=== PATIENT | female | born 1975 | race Caucasian/White ===

== ENCOUNTER 2021-01-14 10:58 | Outpatient (REF) | payer OTHER, SELFPAY ==
--- NOTE | ~2021-01-14 | MM_ITS ---
EXAMINATION: MM SCREENING DIGITAL BREAST TOMOSYNTHESIS, BILATERAL CLINICAL INFORMATION: Screening. Asymptomatic. The lifetime risk of breast cancer based on the Tyrer-Cuzick Model is 28.0%. Additional annual screening with breast MRI may be of benefit in women with a Score of 20% or greater. COMPARISON: Mammography: November 05, 2019 and studies dating back to December 30, 2009 TECHNIQUE: Digital breast tomosynthesis is performed in both the craniocaudal and mediolateral oblique views along with computer-aided detection (CAD). Synthesized 2D images are generated from the tomosynthesis. FINDINGS: There are scattered areas of fibroglandular density (ACR BI-RADS breast composition Category b). There are no significant masses, abnormal calcifications, or other abnormalities. MM/MM tomosynthesis screening BI IMPRESSION: There are no significant changes from prior study. ASSESSMENT: BI-RADS 1: Negative RECOMMENDATION: Routine annual mammography screening. Consideration of screening MRI. This patient's information was entered into a reminder system with a target due date for their next mammogram.
== END 2021-01-14 10:59 | disposition home or self-care (01) ==
LOC: HO.MAMMO 10:58
PROVIDERS: PCP Internal Medicine; Visit Provider Internal Medicine
DX: Z12.31 Encounter for screening mammogram for malignant neoplasm of breast (principal)
CPT/HCPCS: 77063; 77067

== ENCOUNTER 2023-02-03 11:42 | Outpatient (REF) | payer OTHER, SELFPAY ==
--- NOTE | ~2023-02-03 | MM_ITS ---
EXAMINATION: MM SCREENING DIGITAL BREAST TOMOSYNTHESIS, BILATERAL CLINICAL INFORMATION: Screening. Asymptomatic. The lifetime risk of breast cancer based on the Tyrer-Cuzick Model is 12%. COMPARISON: Mammography: 01/14/2021, 11/05/2019, 10/29/2018 TECHNIQUE: Digital breast tomosynthesis is performed in both the craniocaudal and mediolateral oblique views along with computer-aided detection (CAD). Synthesized 2D images are generated from the tomosynthesis. FINDINGS: There are scattered areas of fibroglandular density (ACR BI-RADS breast composition Category b). There are no significant masses, abnormal calcifications, or other abnormalities. Parenchymal pattern is similar to prior studies. There is no developing density or architectural abnormality. The axilla and skin contours are unremarkable. No significant changes. MM/MM tomosynthesis screening BI IMPRESSION: No mammographic evidence of malignancy. ASSESSMENT: BI-RADS 1: Negative RECOMMENDATION: Routine annual mammography screening. This patient's information was entered into a reminder system with a target due date for their next mammogram.
== END 2023-02-03 11:43 | disposition home or self-care (01) ==
LOC: HO.MAMMO 11:42
PROVIDERS: PCP Internal Medicine; Visit Provider Internal Medicine
DX: Z12.31 Encounter for screening mammogram for malignant neoplasm of breast (principal)
CPT/HCPCS: 77063; 77067

== ENCOUNTER 2023-02-23 11:08 | Outpatient (REF) | payer OTHER, SELFPAY ==
[2023-02-24 11:47] LABS: CT PCR NOT DETECTED (Not Detect.); NG PCR NOT DETECTED (Not Detect.)
[2023-02-24 13:45] LABS: BV Int Neg Control Negative (Negative); BV Int Pos Control Positive (Positive)
[2023-03-02 02:33] LABS: HPV mRNA E6/E7 rflx Not Detected (Not Detected)
== END 2023-02-23 11:09 | disposition home or self-care (01) ==
LOC: HO.LNP 11:08
PROVIDERS: PCP Internal Medicine; Visit Provider Advanced Practice Midwife
DX: Z01.419 Encounter for gynecological examination (general) (routine) without abnormal findings (principal); Z11.51 Encounter for screening for human papillomavirus (HPV); Z20.2 Contact with and (suspected) exposure to infections with a predominantly sexual mode of transmission
CPT/HCPCS: 0353U; 87480; 87510; 87624; 87660; 88142

== ENCOUNTER 2024-03-05 10:03 | Outpatient (REF) | payer OTHER, SELFPAY | END 2024-03-05 10:04 | disposition home or self-care (01) | LOC: HO.MAMMO 10:03 | PROVIDERS: Visit Provider Internal Medicine | DX: Z12.31 Encounter for screening mammogram for malignant neoplasm of breast (principal) | CPT/HCPCS: 77063; 77067 ==

== ENCOUNTER → 2024-03-05 10:30 | Outpatient (BNV) | payer OTHER, SELFPAY | PROVIDERS: Visit Provider Radiology Diagnostic Radiology | DX: Z12.31 Encounter for screening mammogram for malignant neoplasm of breast (principal) | CPT/HCPCS: 77063; 77067 ==

== ENCOUNTER 2024-11-20 13:03 | Outpatient (REF) | payer OTHER, SELFPAY ==
[2024-11-21 03:49] LABS: CT PCR NOT DETECTED (Not Detect.); NG PCR NOT DETECTED (Not Detect.)
[2024-11-21 13:03] LABS: Bacterial Vaginosis PCR POSITIVE (Negative); Candida Group PCR NOT DETECTED (Not Detect); Candida glab krusei PCR NOT DETECTED (Not Detect); Trichomonas vaginalis PCR NOT DETECTED (Not Detect)
== END 2024-11-20 13:04 | disposition home or self-care (01) ==
LOC: HO.LAB 13:03
PROVIDERS: Visit Provider Advanced Practice Midwife
DX: Z01.419 Encounter for gynecological examination (general) (routine) without abnormal findings (principal); N89.8 Other specified noninflammatory disorders of vagina; Z20.2 Contact with and (suspected) exposure to infections with a predominantly sexual mode of transmission; N95.1 Menopausal and female climacteric states; Z98.890 Other specified postprocedural states; Z78.9 Other specified health status
CPT/HCPCS: 36415; 81515; 83001; 86780; 86803; 87340; 87389; 87491; 87591; 99396; 99459

== ENCOUNTER 2024-11-20 13:03 | Outpatient (AMB) | payer OTHER, SELFPAY ==
--- NOTE | 2024-11-20 13:06 | A.OFFVIS_ITS ---
Vital Signs 11/20/24 13:11 Height 5 ft 6 in Weight 178 lb BMI 28.7 BP 114/74 Intake Visit Reasons: annual Family Law Specialist: Family Law Specialist Present (Susu) Accompanied by: Self / Same As Patient Allergies No Known Allergies Allergy (Verified 11/20/24 13:10) Medication List - Last Reconciled 11/20/24 by Tegan Tony CNM aspirin 1 tab PO DAILY cholecalciferol (vitamin D3) (Vitamin D3) 25 mcg PO DAILY diazepam 5 mg PO DAILY PRN fluticasone propionate 50 mcg/actuation sprays intranasal lamotrigine 150 mg PO DAILY omega 4-mvw-hcf-fish oil 1,000 (120-180) mg 1 cap PO BID omeprazole 20 mg PO DAILY rosuvastatin 20 mg PO BEDTIME zolpidem 5 mg PO BEDTIME PRN Is last menstrual period known: No Post menopausal: Yes Patient : No HPI HPI annual: Details: Patient is here for her vp cardiovascular annual exam. She has a number of issues going on she hurt her shoulder in a physical connection with someone and from that her neck is really hurting her as well she is going to be starting physical therapy next week and also she is going to be getting an injection her shoulder because she already had an MRI.. She says it has been uncomfortable when she has been having sex. She thinks it could be related to dryness (that was not demonstrated today). She sent the doctor a neurologist who she saw offer the neck and shoulder told her everything was related to menopause and she should talk to gynecology about hormones. She has a history endometrial ablation many years ago she does not remember who or when did it She is also complaining of a care original urinary incontinence and then when she goes to [facility] she can not fully empty only a little bit comes out. [facility] Surgical History No pertinent past surgical history Family History Mother Breast cancer Brain cancer Sister Pancreatic cancer Father Skin cancer Colon cancer Social History (Updated 02/23/23 @ 11:13 by Maryjo Chang CMA) Household Members: Significant Other Housing: Apartment Alcohol intake: current Alcohol intake frequency: a few times a week Alcohol type: beer Patient Tobacco Use Status: Never used Tobacco Female Reproductive History Menstrual Age of Menarche: 11 Total pregnancies: 2 Full term: 2 Date of last pap smear: 02/23/23 (negative hpv, negative pap smear ) Physical Exam Vital Signs: Last Vital Signs BP 114/74 11/20/24 13:11 BMI result Body Mass Index 28.7 Const Other: Patient works out several times a week at the gym and has very well developed musculature though she is concerned that she is losing some muscle mass. General: healthy appearing, comfortable, no acute distress, well developed and alert Nutritional Appearance: average body habitus Orientation/consciousness: patient oriented x3 Limitations: no limitations HEENT Head: Yes normocephalic Neck Neck: Yes normal visual inspection Chest Chest palpation & inspection: normal inspection of the chest Breast/axilla inspection: normal inspection of the breasts and normal inspection of the axillae Breast/axilla palpation: normal palpation of the breasts and normal palpation of the axillae Resp Effort & Inspection: normal respiratory effort GI Inspection: Yes normal to inspection, No Abdominal wall edema and No distended Palpation (GI): Soft to palpation and nontender Other: Normal external exam vagina is pink moist cervix appears nulliparous pink smooth shiny with scant it will pink trickle from os very moist mucosa which is not atrophic in the least. Cervix long close thick mobile nontender uterus mobile nontender nonenlarged adnexa nontender was not able to elicit any discomfort during the exam whatsoever patient had extremely good tone with Kegel. General: Yes bladder normal to palpation External Female Exam: normal external appearance and normal appearance of the urethra Speculum Exam - Vagina: normal appearance of the vagina, normal palpation and normal vaginal discharge Speculum Exam - Cervix: normal appearance of the cervix, normal palpation and nontender Bimanual exam- vagina & uterus: normal bimanual exam, normal palpation, uterine size normal, bladder normal to palpation, consistency normal, normal palpation, uterine mobility normal, uterine shape normal, No Cervical tenderness present, non-tender and no cervical motion tenderness Bimanual Exam- Adnexa, other: normal adnexae, no masses, normal and No adnexal tenderness Neuro General: patient oriented x3 Assessment & Plan Assessment & Plan (1) Well woman exam with routine gynecological exam: Code(s): Z01.419 - Encounter for gynecological examination (general) (routine) without abnormal findings Category: Medical (2) Cervical cancer screening: Comment: 02/03.10/2022 Pap is negative with negative HPV Code(s): Z12.4 - Encounter for screening for malignant neoplasm of cervix Category: Medical (3) Screen for sexually transmitted diseases: Code(s): Z11.3 - Encounter for screening for infections with a predominantly sexual mode of transmission Category: Medical (4) History of endometrial ablation: Code(s): Z98.890 - Other specified postprocedural states Category: Medical (5) Relies on tubal ligation as primary control method: Code(s): Z78.9 - Other specified health status Category: Medical (6) Perimenopausal symptoms: Comment: Discussed that I currently do not prescribe hormonal replacement therapy and she would need to seek advice from another provider if she chose to pursue this. Did discuss prema menopausal symptoms which she does not have very many of the th is point. Offered to do FSH to see if she is fact in menopause. She had an endometrial ablation so that is suppresses menses Code(s): N95.1 - Menopausal and female climacteric states Category: Medical (7) Urinary retention with incomplete bladder emptying: Comment: Discussed the mechanism holding urine for very long time until the bladders over full and then the incomplete emptying. Recommend discussing with primary care provider but also trying to make sure she voids at least every couple of hours. Code(s): R33.9 - Retention of urine, unspecified Category: Medical (8) Musculoskeletal disorder of neck: Comment: She is using hot and cold therapy and Epsom salt that is discussed heat wrap for neck as well. She will be getting a cortisone shot in her shoulder and we will be starting PT next week.... Code(s): M53.82 - Other specified dorsopathies, cervical region Category: Medical Plan -----Discussed in this visit the following: healthy balanced diet, regular and consistent exercise, getting recommended health screens, doing the best she can for her particular health concerns, kegel exercises, pap smear screening and followup recommendations, mammography screening and SBE, normal changes in cycles in her life stage--- . Discussed her past medical history in the fact that she had an ablation which would obviously prevent her periods she is not really having by her own description any of the other menopausal symptoms she is not actually experiencing any dryness today that was simply something I suggested and then she said well maybe but that she is not experiencing that actually, though she may occasionally during sex she said the lubricants do not work all that well. I was not able to duplicate any of the discomfort that she said she had had in the past discussed the possibility it could have been related to a full bladder. Discussed habits of holding urine and not emptying especially if there was not a clean bathroom around and then when she approaches a bathroom being unable to hold it completely and then only emptying a little bit discussed the mechanism an over full bladder and how incomplete emptying occurs I recommend considering having a discussion with her primary as to whether not she needs a referral to Urology.. Also discussed that I do not prescribe hormonal replacement therapy as I am not comfortable with it I did offer to do an FSH to see if she is in the menopausal range though she is not showing full symptoms of it at this point I also ordered a mammogram even though she said she all she needed to do was called just to be sure that she gets her yearly mammogram Discussed comfort measures for her neck and shoulder- she is also doing hot and cold therapy for the shoulder. Timeframe/Date Comment Labs and info on patient portal given RTC 1 year Orders: Orders Hepatitis C Antibody Today N95.1 - Menopausal and female climacteric states, Z01.419 - Encounter for gynecological examination (general) (routine) without abnormal findings, Z11.3 - Encounter for screening for infections with a predominantly sexual mode of transmission, Z12.4 - Encounter for screening for malignant neoplasm of cervix, Z78.9 - Other specified health status, Z98.890 - Other specified postprocedural states HIV Ab/Ag Today N95.1 - Menopausal and female climacteric states, Z01.419 - Encounter for gynecological examination (general) (routine) without abnormal findings, Z11.3 - Encounter for screening for infections with a predominantly sexual mode of transmission, Z12.4 - Encounter for screening for malignant neoplasm of cervix, Z78.9 - Other specified health status, Z98.890 - Other specified postprocedural states MM tomosynthesis screening BI Today N95.1 - Menopausal and female climacteric states, Z11.3 - Encounter for screening for infections with a predominantly sexual mode of transmission, Z12.31 - Encounter for screening mammogram for malignant neoplasm of breast, Z12.39 - Encounter for other screening for malignant neoplasm of breast, Z12.4 - Encounter for screening for malignant neoplasm of cervix, Z78.9 - Other specified health status, Z98.890 - Other specified postprocedural states Follicle Stimulating Hormone Today N95.1 - Menopausal and female climacteric states, Z01.419 - Encounter for gynecological examination (general) (routine) without abnormal findings, Z11.3 - Encounter for screening for infections with a predominantly sexual mode of transmission, Z12.4 - Encounter for screening for malignant neoplasm of cervix, Z78.9 - Other specified health status, Z98.890 - Other specified postprocedural states Hepatitis B Surface Antigen Today N95.1 - Menopausal and female climacteric states, Z01.419 - Encounter for gynecological examination (general) (routine) without abnormal findings, Z11.3 - Encounter for screening for infections with a predominantly sexual mode of transmission, Z12.4 - Encounter for screening for malignant neoplasm of cervix, Z78.9 - Other specified health status, Z98.890 - Other specified postprocedural states Syphilis Screen Today N95.1 - Menopausal and female climacteric states, Z01.419 - Encounter for gynecological examination (general) (routine) without abnormal findings, Z11.3 - Encounter for screening for infections with a predominantly sexual mode of transmission, Z12.4 - Encounter for screening for malignant neoplasm of cervix, Z78.9 - Other specified health status, Z98.890 - Other specified postprocedural states CT NG by PCR Today N89.8 - Other specified noninflammatory disorders of vagina, Z20.2 - Contact with and (suspected) exposure to infections with a predominantly sexual mode of transmission Bacterial Vaginosis Panel Today N89.8 - Other specified noninflammatory disorders of vagina Coding Level of Care Code Est Pt Prev Care 40-64y(45765) Diagnoses Well woman exam with routine gynecological exam Z01.419 Cervical cancer screening Z12.4 Screen for sexually transmitted diseases Z11.3 History of endometrial ablation Z98.890 Relies on tubal ligation as primary control method Z78.9 Perimenopausal symptoms N95.1 Urinary retention with incomplete bladder emptying R33.9 Musculoskeletal disorder of neck M53.82
[2024-11-20 13:11] VITALS: BP 114/74; BMI 28.7
== END 2024-11-20 15:54 | disposition home or self-care (01) ==
LOC: HO.HWSM 13:04
PROVIDERS: Visit Provider Advanced Practice Midwife
DX: Z01.419 Encounter for gynecological examination (general) (routine) without abnormal findings (principal); N95.1 Menopausal and female climacteric states; R33.9 Retention of urine, unspecified
CPT/HCPCS: 99396; 99459

== ENCOUNTER 2024-11-20 14:12 | Outpatient (REF) | payer OTHER, SELFPAY ==
[2024-11-21 04:09] LABS: Follicle Stimulating Hormone 9.4 mIU/mL
[2024-11-21 08:05] LABS: Syphilis Screen Nonreactive (Nonreactive)
[2024-11-21 08:09] LABS: HBsAGNum1 0.24 S/CO (0.00-0.99); HIV AB/AG Nonreactive (Nonreactive); HIV Num 1 0.05 S/CO (0.00-0.99); Hepatitis B Surface Antigen Negative (Negative); ~HepC Num1 0.09 S/CO (0.00-0.79); ~Hepatitis C Antibody Nonreactive (Nonreactive)
== END 2024-11-20 14:13 | disposition home or self-care (01) ==
LOC: HO.HHCL 14:12
PROVIDERS: Visit Provider Advanced Practice Midwife
DX: Z13.89 Encounter for screening for other disorder (principal)
CPT/HCPCS: 36415; 83001; 86780; 86803; 87340; 87389

== ENCOUNTER 2024-11-21 15:03 | Outpatient (AMB) | payer OTHER, SELFPAY ==
--- NOTE | 2024-11-21 15:05 | MHC.OFFVIS ---
Intake Visit Reasons: Test Result Allergies No Known Allergies Allergy (Verified 11/21/24 15:05) Medication List - Last Reconciled 11/21/24 by Tegan Tony CNM aspirin 1 tab PO DAILY cholecalciferol (vitamin D3) (Vitamin D3) 25 mcg PO DAILY diazepam 5 mg PO DAILY PRN fluticasone propionate 50 mcg/actuation sprays intranasal lamotrigine 150 mg PO DAILY omega 6-ekc-upt-fish oil 1,000 (120-180) mg 1 cap PO BID omeprazole 20 mg PO DAILY rosuvastatin 20 mg PO BEDTIME zolpidem 5 mg PO BEDTIME PRN Is last menstrual period known: No Post menopausal: Yes PFSH Surgical History No pertinent past surgical history Family History Mother Breast cancer Brain cancer Sister Pancreatic cancer Father Skin cancer Colon cancer Social History (Updated 02/23/23 @ 11:13 by Maryjo Chang CMA) Household Members: Significant Other Housing: Apartment Alcohol intake: current Alcohol intake frequency: a few times a week Alcohol type: beer Patient Tobacco Use Status: Never used Tobacco Female Reproductive History Menstrual Age of Menarche: 11 Total pregnancies: 2 Full term: 2 Telehealth Telehealth Telehealth Platform: Telephone Location of provider rendering services: practice address Location of patient: address on file Patient Identification confirmed using: Name, : Yes Telehealth method: voice only Patient verbally consented to treatment: Yes Patient verbally consented to billing insurance company: Yes Patient informed of any privacy concerns related to visit: Yes Minutes spent on Phone/Video with Pt.: 5 (1 cr/5 speaking w pt,6 charting=12.) Results Reviewed Results Reviewed: Name: Catina Siddiqi Age/Sex: 49/F : 1975 Unit#: [id number] Attend Dr: Tegan Tony CNM Re11/20/24 Status: DEP REF Location: [facility] Disch: SPEC : [id number] KRIS: 11/20/24-1419 STATUS: COMP REQ : [id number] RECD: 11/20/24-[address]: Tegan Tony CNM COMP: 11/21/240409 ENTERED: 11/20/[address]: ORDERED: FSH Test Result Flag Reference FSH 9.4 mIU/mL Reference Range Follicular Phase 2.5-10.2 Mid-cycle Peak 3.1-17.7 Luteal Phase 1.5- 9.1 Postmenopausal 23.0-116.3 THIS TEST WAS PERFORMED AT: [facility] [address] [place] [id number] RADHA GARRETT MD Name: Catina Siddiqi Age/Sex: 49/F : 1975 Unit#: [id number] Attend Dr: Tegan Tony CNM Re11/20/24 Status: [facility]P [facility] Disch: SPEC : [id number] KRIS: 11/20/24 STATUS: COMP REQ : [id number] RECD: 11/20/[address]: Tegan Tony CNM COMP: 11/21/24 ENTERED: 11/20/[address] [facility] [address]: ORDERED: BV Panel Test Result Flag Reference TV PCR NOT DETECTED Not Detect BV PCR POSITIVE A Negative The BV organism targets of the Xpert Xpress MVP test can be commensal in women; Xpert Xpress MVP positive results for bacterial vaginosis should be considered in conjunction with other clinical and patient information to determine the disease status. Organisms that are not detected by the Xpert Xpress MVP test have also been reported to be associated with BV and aerobic vaginitis. The Xpert Xpress MVP test performance has not been evaluated in patients under the age of 14. Anna Grp PCR NOT DETECTED Not Detect Can gla-kru NOT DETECTED Not Detect END OF REPORT END OF REPORT All other testing is negative... Assessment & Plan Assessment & Plan (1) Encounter to discuss test results: Comment: 11/21/2024 prema menopausal, but not yet menopausal... Code(s): Z71.2 - Person consulting for explanation of examination or test findings Category: Medical (2) Perimenopausal symptoms: Comment: Discussed that I currently do not prescribe hormonal replacement therapy and she would need to seek advice from another provider if she chose to pursue this. Did discuss prema menopausal symptoms which she does not have very many of the this point. Offered to do FSH to see if she is fact in menopause. She had an endometrial ablation so that is suppresses menses; FSH indicates not yet menopausal 11/20/24. Code(s): N95.1 - Menopausal and female climacteric states Category: Medical (3) Bacterial vaginosis: Comment: Completely normal exam, no abnormal discharge and has no symptoms no treatment necessary. Code(s): N76.0 - Acute vaginitis; B96.89 - Other specified bacterial agents as the cause of diseases classified elsewhere Category: Medical Plan I reviewed her lab results with her done yesterday her FSH indicates that she has not yet menopausal which we had discussed at some length yesterday. Also discussed the positive BV which is the only positive finding out of all her lab work. She had no symptoms whatsoever in her cervical discharge was completely clear and clean. I discussed that she does not need to treat this at all if she has no symptoms whatsoever. Coding Level of Care Code Tele Est Pt Level 3 (02629) Diagnoses Encounter to discuss test results Z71.2 Perimenopausal symptoms N95.1 Bacterial vaginosis N76.0; B96.89
== END 2024-11-21 15:56 | disposition home or self-care (01) ==
LOC: HO.HWSM 15:03
PROVIDERS: Visit Provider Advanced Practice Midwife
DX: Z71.2 Person consulting for explanation of examination or test findings (principal); N95.1 Menopausal and female climacteric states; N76.0 Acute vaginitis; B96.89 Other specified bacterial agents as the cause of diseases classified elsewhere
CPT/HCPCS: 99213

== ENCOUNTER → 2025-06-24 11:45 | Outpatient (BNV) | payer OTHER, SELFPAY | PROVIDERS: PCP Internal Medicine; Visit Provider Internal Medicine | DX: Z12.31 Encounter for screening mammogram for malignant neoplasm of breast (principal) | CPT/HCPCS: 77063; 77067 ==

== ENCOUNTER 2025-06-24 11:56 | Outpatient (REF) | payer OTHER, SELFPAY ==
--- NOTE | ~2025-06-24 | MM_ITS ---
EXAMINATION: MM SCREENING DIGITAL BREAST TOMOSYNTHESIS, BILATERAL CLINICAL INFORMATION: Screening. Asymptomatic. COMPARISON: Mammography: Comparison is made with available priors TECHNIQUE: Digital breast mammography with tomosynthesis is performed in both the craniocaudal and mediolateral oblique views along with computer-aided detection (CAD). FINDINGS: There are scattered areas of fibroglandular density. There are no significant masses, abnormal calcifications, or other abnormalities. MM/MM tomosynthesis screening BI IMPRESSION: No mammographic evidence of malignancy. ASSESSMENT: BI-RADS Category 1: Negative RECOMMENDATION: Routine annual mammography screening. 1 year F/U This examination should not preclude the clinical evaluation of a suspicious palpable abnormality. This patient's information was entered into a reminder system with a target due date for their next mammogram. Electronically signed by: Aleida Sanchez DO 06/24/2025 12:41 PM EDT
--- OUTSIDE RECORDS SUMMARY | 2025-06-24 15:22 | XMS_ITS | Data Portability ---
Author Organization [facility], [facility] Address [address] [place] [address] Care Team Providers Care Liner Man Name Role Phone [facility] Referring Provider Assessment Encounter Date Assessment Date Assessment LastModified by Organization Details LastModified Time 05/05/2022 05/05/2022 I have reviewed and agree with the Assessment and Plan as documented by the Technical Illustrations Map Inker. I provided real -time medical direction via phone for this encounter, and was available for additional phone based assistance as needed. Patient given the opportunity to ask questions. [email or web address] Not available 05/05/2022 16:07:54 Plan of Treatment Reminders Order Date Submit Date Provider Last Modified By Organization Details Last Modified Time Details Appointments None recorded. Lab rapid SARS CoV 2 Ag, QL IA, respiratory specimen [email or web address] [facility], [address] [place] [address], [phone] 2 16:07:02 rapid flu (A+B) [email or web address] [facility], [address] [place] [address], [phone] 2 16:07:02 rapid strep group A, throat [email or web address] [facility], [address] [place] [address], [phone] 2 16:07:02 glucose, fingerstick , blood [email or web address] [facility], [address] [place] [address], [phone] 2 23:22:17 Referral None recorded. Procedures None recorded. Surgeries None recorded. Imaging None recorded. Medication Orders Paxlovid 300 mg (150 mg x 2)-100 mg tablets in a dose pack 2021 022 [email or web address] 0 [facility]/Pharmacy #[id number], [phone] [place], [phone], 23:18:46 benzonatate 200 mg capsule 2021 022 ANNA [facility]/Pharmacy #[id number], [phone] [place], [phone], 03:41:32 Patient TargetsNo targets recorded. Patient InstructionsNo instructions recorded. Reason for Referral None Reported. Results Created Date Observation Date Name Description Value Unit Range Abnormal Flag Note LastModifiedBy Organization Detail LastModifiedTime 05/05/20 22 05/05/2022 gluco se, félix caicedo k, blood Blood Glucose: mg/dl 133 Not Available [facility] [address] [place] [address], [phone] 05/05/2022 16:08:01 05/05/20 22 05/05/2022 rapid strep group A, throa t Strep negati ve Not Available [facility] - [facility] [address] [place] [address], [phone] 05/05/2022 15:37:43 05/05/20 22 05/05/2022 rapid flu (A+B) Flu negati ve Not Available [facility] - [facility] [address] [place] [address], [phone] 05/05/2022 15:37:35 05/05/20 22 05/05/2022 rapid SARS CoV 2 Ag, QL IA, respi rator y speci men rapid SARS CoV 2 Ag, QL IA, respiratory specimen positi ve Not Available [facility] - [facility] [address] [place] [address], [phone] 05/05/2022 15:37:34 Result Notes None recorded. Medical Equipment None Reported. Allergies No known drug allergies Medications Name Sig Start Date Stop Date Status Note LastModified by Organization Details LastModified Time lamotrigine 150 mg tablet TAKE 1 TABLET BY MOUTH EVERY DAY FOR 90 DAYS active Not Available Not Available No t Available silver sulfadiazine 1 % topical cream APPLY TOPICALLY TO NAIL BED DAILY active Not Available Not Available No t Available omega-3 fatty acids 1,000 mg capsule TAKE 1 CAPSULE BY MOUTH TWICE A DAY active Not Available Not Available No t Available benzonatate 200 mg capsule TAKE 1 CAPSULE BY MOUTH THREE TIMES A DAY FOR 7 DAYS(NOT COVERED) active Not Available Not Available No t Available ondansetron HCl 4 mg tablet TAKE 1 TABLET BY MOUTH EVERY 8 HOURS NEEDED FOR NAUSEA FOR UP TO 7 DAYS. active Not Available Not Available No t Available cephalexin 500 mg capsule TAKE 1 CAPSULE BY MOUTH THREE TIMES A DAY FOR 10 DAYS active Not Available Not Available Not Available omeprazole 20 mg capsule,jordin yed release TAKE 1 CAPSULE BY MOUTH EVERY DAY active Not Available Not Available No t Available aspirin 81 mg chewable tablet TAKE 1 TABLET BY MOUTH EVERY DAY active Not Available Not Available No t Available zolpidem 5 mg tablet TAKE 1 TABLET BY MOUTH EVERY DAY AT BEDTIME FOR 30 DAYS active Not Available Not Available No t Available fluticasone propionate 50 mcg/actuatio n nasal spray,suspen chandler PLEASE SEE ATTACHED FOR DETAILED DIRECTIONS active Not Available Not Available N ot Available naproxen 500 mg tablet TAKE 1 TABLET BY MOUTH TWICE A DAY active Not Available Not Available No t Available diazepam 5 mg tablet TAKE 1 TABLET BY MOUTH EVERY DAY NEEDED FOR 30 DAYS active Not Available Not Available No t Available Vitamin D3 25 mcg (1,000 unit) capsule TAKE 1 CAPSULE BY MOUTH EVERY DAY active Not Available Not Available No t Available rosuvastatin 20 mg tablet TAKE 1 TABLET BY MOUTH EVERY DAY active Not Available Not Available No t Available omega [id number] sh oil 1,000 mg (120 mg-180 mg) capsule TAKE 1 CAPSULE BY MOUTH TWICE A DAY active Not Available Not Available No t Available Paxlovid 300 mg (150 mg x 2)-100 mg tablets in a dose pack Paxlovid 150mg/ 100mg- 2 pills 2 x per day x 5 days 2021 active Not Available Not Available Not Avai lable Vitals Date Recorded Body temperature Heart rate Oxygen saturation Oxygen saturation in Arterial blood by Pulse oximetry Respiratory rate Systolic And Diastolic Provider Name and Address Organization Details Last Updated DateTime 2 99 [degF] 88 /min 100 % 100 % 18 /min 122/73 mm[Hg] Not Available [facility] - production 2 15:28:17 Social History None recorded. Functional Status None recorded. Mental Status None recorded. Family History Nothing Reported. Medical History No medical history recorded. Gynecological HistoryNo gynecological history recorded. Obstetrics History GPAL:G 0 P 0 0 0 0 Past Encounters Encounter ID Performer Location Encounter Start Date Encounter Closed Date Diagnosis/Indication Diagnosis SNOMED-CT Code Diagnosis ICD10 Code Diagnosis IMO Codes Diagnosis Note [id number] Lindsay Pa MD Main - [address] [phone] 05/05/2022 15:28:13 05/18/2022 11:50:03 COVID-19 [id number] U07.1 since otc meds not helping cough will trial tessalon- pat aware insurance may not cover- since more ill x 2 days- has acute covid and has diabetes/ HTN is at risk for severe disease, will RX covid- pat only on Crestor/as a/ valium and ambien- should not significan tly interact.R est/ push fluids - may continue 1 gram APAP 3 x per day.Advise d to f/u w/ pcp ASAPIf develops CP/ severe SOB/ cyanosis / hi fever to go to the ER Diabetes mellitus 174514 09 E13.9 Health Concerns Section Related Observation LastModified by Organization Detai ls LastModified Time None Recorded Concern Status LastModified by Organization Details LastModified Time None Recorded Advance Directives Directive None Recorded Payers Insurance Date Sequence Insurance Name Policy Number Policy Robles Covered Member ID Robles Member ID Guarantor Name 10/29/2023 1 [facility] - DOS PRIOR TO 2022 - DUAL ELIGIBLE (MEDICARE REPLACEMENT/ADV ANTAGE - HMO) Catina Schererto [id number] Catina Siddiqi 10/29/2023 1 [facility] - DOS ON OR AFTER 2022 - DUAL ELIGIBLE - LONG-TERM OPTIONS AND ONE CARE (MEDICARE REPLACEMENT/ADV ANTAGE - HMO) Catina Siddiqi [id number] Catina Siddiqi Notes Date Note Type Note Provider Name and Address Organization Details Recorded Time 05/05/2022 text/html ROS as noted in the HPI CRC Nursing Assessment: Reason For Request: Patient went ED a few weeks ago, got tested for COVID-19 and the result was negative. Symptoms she is experiencing have lingered and gotten worse. - cough Patient Reports: Cough, fever greater than 2 days ; Sputum increase ; CoughDenies: Lower extremity swelling History of asthma, increased use of inhaler COPD COVID Exposure Shortness of breath with exertion Pain with inspiration Chief Complaints: Cough, Headache, Syncope/Dizziness/ Lightheadedness, Pain, Chest PainPMH: Hypertension, DiabetesAllergies: No KnownComments: Member went to ER apr 19 and was told that she had a virus. Member continues to have increased symptoms of cough/ fever/ chills/ nausea / dry mouth. Member has tried OTC medication with no change. Member would like a retest to determine if test was a false negative as she continues to feel ill .................. .................. .................. .................. .................. .................. .................. ............... Technical Illustrations Map Inker Note: Pt complains of nasal congestion, cough, sore throat and headache for approx 3-4 weeks not. Pt was seen in the ED 2 weeks ago where she was told she has a viral sinus infection. Pt states she still has the symptoms and they get less severe and and then worse again. Flu/strep/COVID tests preformed. COVID +Pt has tried OTC medication with little relief. [facility]. Prescription called into preferred pharmacy. .................. .................. .................. .................. .................. .................. .................. ............... Dispo: Fulfilled SEGMD: as above- s/s worse again x 2 days- H/A and sore throat primarily w cough- dry cough Lindsay Pa MD [address] [facility],[address], [place], [address], [facility] - DINH POLLOCK 05/05/2022 23:26:07 OBGyn Episode No OBEpisode recorded.
--- OUTSIDE RECORDS SUMMARY | 2025-06-24 15:22 | XMS_ITS | Clinical Summary ---
Author Organization [facility] Address [address] [place] [address] Care Team Providers Care Energy Conservation Specialist Name Role Phone Sofia Allen MD Primary Care Provider [phone] Allergies No known active allergies Medications Medication Sig Dispensed Refills Start Date End Date Status zolpidem (AMBIEN) 5 MG tablet Take 1 tablet (5 mg total) by mouth every night at bedtime as needed for sleep. 0 Active rosuvastatin (CRESTOR) tablet 20 mg Take 1 tablet (20 mg total) by mouth daily. 0 Active Cholecalciferol (vitamin D3) 10 MCG (400 UNIT) TABS Take by mouth. 0 Activ e aspirin EC 81 MG tablet Take 1 tablet (81 mg total) by mouth daily. 0 Active omeprazole (PriLOSEC) 20 MG capsule Take 1 capsule (20 mg total) by mouth daily. 0 Active diazePAM (VALIUM) 2 MG tablet Take 1 tablet (2 mg total) by mouth every 6 (six) hours as needed for anxiety. 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 12/27/2023 Social History Tobacco Use Types Packs/Day Years Used Date Smoking Tobacco: Never Smokeless Tobacco: Never Tobacco Cessation:Counseling Given: Not Answered Alcohol Use Standard Drinks/Week Comments Never 0 (1 standard drink = 0.6 oz pur e alcohol) Sex and Gender Information Value Date Recorded Sex Assigned at Not on file Gender Identity Not on file Sexual Orientation Not on file Job Start Date Occupation Industry Not on file Not on file Not on file Last Filed Vital Signs Vital Sign Reading Time Taken Comments Blood Pressure 118/66 06/18/2024 1:15 PM EDT Pulse 74 06/18/2024 1:15 PM EDT Temperature 36.2 C (97.2 F) 06/18/2024 1:15 PM EDT Respiratory Rate - - Oxygen Saturation 100% 06/18/2024 1:15 PM EDT Inhaled Oxygen Concentration - - Weight 79.4 kg (175 lb) 06/18/2024 1:15 PM EDT Height - - Body Mass Index - - Plan of Treatment Health Maintenance Due Date Last Done Comments Hepatitis C Screening 1973 Depression Screening 1985 Preventative Health Evaluation 11/14/1991 Shingrix-Zoster Vaccine (1 of 2) 1992 Cervical Cancer Screening (Pap Smear) 1994 Colon Cancer Screening (Colonoscopy) 2018 Pneumococcal Vaccine (3 of 3 - PPSV23 or PCV20) 06/13/2019 04/18/2019, 03/12/2008 COVID-19 Vaccine (3 - Pfizer risk series) 11/25/2021 10/28/2021, 10/07/2021 Breast Cancer Screening (Mammogram) 11/14/2023 Influenza Vaccine (#1) 2025 , 05/17/2022, 06/16/2021, Additional history exists DTap / Tdap / Td (3 - Td or Tdap) 12/28/2030 12/28/2020, 09/20/2013 Hepatitis B Vaccines Completed 07/06/2016, 09/25/2015, 08/25/2015, Additional history exists RSV Ped < 20 months Aged Out No longe r eligible based on patient's age to complete this topic Care Teams Energy Conservation Specialist Relationship Specialty Start Date End Date Sofia Allen MD PCP - General Internal Medicine 12/13/23
--- OUTSIDE RECORDS SUMMARY | 2025-06-24 15:22 | XMS_ITS | Data Portability ---
Author Organization [place] [facility] Address [address] [place] [address] [place] [address] Care Team Providers Care Tying Machine Operator Name Role Phone [facility] Prim gisell Care Provider Assessment Encounter Date Assessment Date Assessment LastModified by Organization Details LastModified Time 09/12/2021 09/12/2021 Overview/History : 45 YO F new to and to provider Pt does speak moldovan. She is presenting today for exposure to COVID and onset of sx's Symptoms started all of a sudden 2-3 days ago. Sx's consist of subjective fever/chills, body aches, congestion, and intermittent dry cough. She is eating and drinking normally and she is using the bathroom her normal. She is taking ibuprofen to help w/ sx's and benadryl and these have helped a little with her sx's. she has not tried anything else. nothing makes her sx's worse. she denies SOB, resp distress, hx of chronic lung dz, N/V/D, numbness/tingling, cp. she has no other assoc sx's. Exam: Vitals: VSS and afebrile Constitutional: 45 yo Well developed, well nourished, pleasant patient in no apparent distress. She is comfortable and she is nontoxic. She is mildly sick appearing. Eyes: PERRL at 4mm, EOM's intact, No swelling, no discharge, sclera / conjunctiva clear ENT: BL inflamed turbinates, Sinuses nontender, TMs/ Canals clear without evidence of infection, no nasal discharge, no erythema/ exudate noted in oropharynx, moist mucous membranes CV: Normal HR, reg rhythm, no rubs/ murmurs/ gallops heard, 2+ radial pulses bilaterally, no edema w/o tenderness to BL calves Pulm: breath sounds clear and equal bilaterally, no wheeze/ rhonchi or rales on auscultation. Speaks in full sentences, no increased work of breathing. GI: Soft, non-tender to palpation. No masses, normal bowel sounds. MS: Self ambulatory patient, moves all limbs without deficit, no evidence of trauma Neuro: No focal deficits, CN s II-XII grossly normal, non ataxic gait, no tenderness to her spine, full AROM of the neck Skin: No rash noted to visible skin Psych: Calm, cooperative, non-manic DDx considered, but not limited to: URI - considered d/t sx's of congestion, subj fever, chills, intermittent dry cough. COVID/Flu - known covid exposure so feel likely covid at this time w/ false neg rapid on scene. we are sending pcr to confirm. Flu considered but no known exposure and pt did not tolerate covid swab well (she voiced discomfort and displeasure) and that was a much less invasive swab. with reccomendations to isolate and stay hydrated for covid already in place feel no need to flu swab at this time as pt likely would not tolerate very well and it would not change managemnet at this juncture Pna - considered d/t cough and fever however lungs are CTAB, cough is mostly dry and she has stable O2 sat, no need for cxr at this time Work up/Results: Rapid covid neg COVID PCR pend Plan/Discussion: URI/suspected covid 19: -Most likely see above -Isolate per CDC guidelines until PCR test returns, alerted we will only call if results are positive -Pt w/o high risk conditions such as asthma/copd, CHF etc -Cont OTC meds for sx relief, sent prescription for flonase per her request as she believes her insurance may cover it -F/u for worsening sx's emergently ie resp distress, productive cough, N/V/D, inability to hold down PO intake, guevara, numbness/tingling, chest pain. Pt is on agreement and verbalizes understanding with the above plans at this time. Pt has no other questions or concerns at this time. All questions are answered to the best of my ability. Pt thanks us for our visit today. elizabeth Not available 09/12/2021 13:10:17 Plan of Treatment Reminders Order Date Submit Date Provider Last Modified By Organization Details Last Modified Time Details Appointments None recorded. Lab rapid SARS CoV 2 Ag, QL IA, respiratory specimen 2021 [facility], [address], [place], [address], 12:44:19 SARS CoV 2 RNA (COVID-19), QL, otr flatbed driver-PCR, respiratory specimen 2021 [place] (Centralized Electronic Ordering - All Locations), Patient Can Go To The Location Of Their Choice, [id number] 21:12:07 Referral None recorded. Procedures None recorded. Surgeries None recorded. Imaging None recorded. Medication Orders Flonase Allergy Relief 50 mcg/actuati on nasal spray,suspe nsion 2021 [place] [id number], [phone] [place], [address], 12:51:14 Patient TargetsNo targets recorded. Patient InstructionsNo instructions recorded. Reason for Referral None Reported. Results Created Date Observation Date Name Description Value Unit Range Abnormal Flag Note LastModifiedBy Organization Detail LastModifiedTime 09/12/1909/15/20212018 NOVEL CORON AVIRU S, PCR covid-19, PCR DETECT ED abnormal Refer ence range : NOT DETEC SASHA (NOTE ) = A Detec sasha resul t indic ates that the patie nts' speci men was posit mauri for SARS- CoV-2 RNA. Test Metho d: Nucle ic Acid Ampli ficat ion Test inclu ding rever se trans cript ion polym erase chain react ion (RT-P CR) and trans cript ion media sasha ampli ficat ion (TMA) . The test metho d meets the [place] Cente rs for Disea se Contr ol and preve ntion (CDC) pre depar ture and arriv al requi remen t for viral test for COVID -19 dated 2020. Testi ng requi remen ts for travmateo tran e with time. The patie nt is respo nsibl e for deter minin g the test requi remen ts for each natio n while they are pablito apple. = This test has been autho rized by the FDA under an Emerg ency Use Autho rizat ion (EUA) for use by autho rized labor atori es. Deric e philipp w the Fact Sheet s and FDA autho rized label ing avail able for healt h care provi ders and patie nts using the follo wing websi arnoldo: https ://ww w.que stdia gnost ics.c om/ho me/Co vid-1 9/HCP / [facility] LDT/f act-s heet. html https ://ww w.que stdia gnost ics.c om/ho me/Co vid-1 9/Pat ients / [facility] LDT/f act-s heet. html = This test has been autho rized by the FDA under an Emerg ency Use Autho rizat ion (EUA) for use by autho rized labor atori es. Due to the curre nt publi c healt h emerg ency, [facility] is accep ting sampl es from appro priat e clini daniel sourc es colle cted using wide varie ty of swabs and trans port media for COVID -19. Not detec sasha test resul ts deriv ed from speci mens recei tatiana in non- comme rcial ly manuf actur ed viral colle ction kits or those not yet autho rized by FDA for COVID -19 testi ng shoul d be cauti ously evalu ated and take extra preca ution s such as addit ional clini daniel monit oring , inclu ding colle ction of an addit ional speci men. Addit ional infor matio n about COVID -19 can be found at the [facility] websi te: www.MOOVIA uestD [employer] .[employer]/ Covid 19. Test Perfo rmed by: [facility], [address], [place]. [address] . Labor atory Direc tor: Hardy montgomery MD. Not Available [facility] (Centralized Electronic Ordering - All Locations) Patient Can Go To The Location Of Their Choice, [id number] 09/15/2021 21:12:07 09/12/19 22 09/12/2021 rapid SARS CoV 2 Ag, QL IA, respi rator y speci men Covid-19 (ref: neg) negati ve Not Available [facility] [address] [place], [address], 09/12/2021 12:43:48 09/12/19 22 09/12/2021 rapid SARS CoV 2 Ag, QL IA, respi rator y speci men Control Visual ized/V alid Not Available [facility] [address] [place], [address], 09/12/2021 12:43:48 09/12/19 22 09/12/2021 rapid SARS CoV 2 Ag, QL IA, respi rator y speci men Location [facility], [facility], [address] [place] [address], [id number] Not Available [facility] [address] [place], [address], 09/12/2021 12:43:48 Result Notes None recorded. Medical Equipment None Reported. Allergies No known drug allergies Medications Name Sig Start Date Stop Date Status Note LastModified by Organization Details LastModified Time lamotrigine 150 mg tablet active Not Available Not Available Not Available Nasal [place] (oxymetazol ine) 0.05 % active Not Available Not Available Not Available omega-3 fatty acids 1,000 mg capsule active Not Available Not Available Not Available cephalexin 250 mg capsule 09/12 completed Not Available Not Available Not Available meloxicam 15 mg tablet active Not Available Not Available Not Available doxycycline monohydrate 100 mg tablet 09/12 completed Not Available Not Available Not Available methocarbam ol 750 mg tablet active Not Available Not Available Not Available omeprazole 20 mg capsule,del ayed release active Not Available Not Available Not Available aspirin 81 mg chewable tablet active Not Available Not Available Not Available Tussin DM 10 mg-100 mg/5 mL oral liquid active Not Available Not Available Not Available zolpidem 5 mg tablet active Not Available Not Available No t Available ibuprofen 600 mg tablet active Not Available Not Available Not Available fluticasone propionate 50 mcg/actuati on nasal spray,suspe nsion TAKE 1 SPRAY INTO NOSTRIL(S ) DIRECTED FOR 7 DAYS active Not Available Not Available No t Available diazepam 5 mg tablet active Not Available Not Available No t Available Vitamin D3 25 mcg (1,000 unit) tablet active Not Available Not Available Not Available rosuvastati n 20 mg tablet active Not Available Not Available Not Available Fish Oil 300 mg-1,000 mg capsule active Not Available Not Available Not Available Vitals Date Recorded Heart rate Oxygen saturation Oxygen saturation in Arterial blood by Pulse oximetry Respiratory rate Body temperature Systolic And Diastolic Provider Name and Address Organization Details Last Updated DateTime 2 94 /min 97 % 97 % 20 /min 98.5 [degF] 122/78 mm[Hg] Not Available [facility] 12:36:58 Social History None recorded. Functional Status Question Answer Note LastModified by Organizat ion Details LastModified Time Do you use any illicit or recreational drugs? No Information not available 09/12/2021 Do you or have you ever used any other forms of tobacco or nicotine? No Information not available 09/12/2021 What is your level of alcohol consumption? Occasional Information not available 09/12/2021 Mental Status None recorded. Family History Nothing Reported Notes:pt denies any known PM H of the family Medical History Condition Response Diabetes Y Coronary Artery Disease N CHF N Parkinson's Disease N Cancer N Stroke N Dementia N Hypothyroidism N Asthma N COPD N Depression N High Cholesterol Y Rheumatoid Arthritis N Pulmonary Embolism N Hypertension Y Osteoporosis N A-fib N Kidney Disease N Past Encounters Encounter ID Performer Location Encounter Start Date Encounter Closed Date Diagnosis/Indication Diagnosis SNOMED-CT Code Diagnosis ICD10 Code Diagnosis IMO Codes Diagnosis Note [id number] REINA Rivas [facility] - [address] [place] [address] 09/12/2021 12:04:52 09/16/2021 23:48:24 Exposure to SARS-CoV-2 452306207 Z20.822 Suspected COVID-19 51099 4004 Z20.822 Acute uppe r respiratory infection 49092293 J06.9 Health Concerns Section Related Observation LastModified by Organization Detai ls LastModified Time None Recorded Concern Status LastModified by Organization Details LastModified Time None Recorded Advance Directives Directive None Recorded Payers Insurance Date Sequence Insurance Name Policy Number Policy Robles Covered Member ID Robles Member ID Guarantor Name 09/16/2021 1 [facility] - [facility] PRIOR TO 2022 - DUAL ELIGIBLE (MEDICARE REPLACEMENT/ADV ANTAGE - HMO) Catina Siddiqi [id number] Catina Siddiqi 09/11/2021 1 *SELF PAY* Catina Siddiqi [id number] Catina Siddiqi 09/12/2021 2 [place] [facility] Catina Siddiqi [id number] Catina Siddiqi 09/16/2021 1 [facility] - DOS PRIOR TO 2022 - DUAL ELIGIBLE (MEDICARE REPLACEMENT/ADV ANTAGE - HMO) Catina Siddiqi [id number] Catina Siddiqi Notes Date Note Type Note Provider Name and Address Organization Details Recorded Time 09/12/2021 text/html 45 YO F new to and to providerPt does speak moldovan.She is presenting today for exposure to COVID and onset of sx'sSymptoms started all of a sudden 2-3 days ago. Sx's consist of subjective fever/chills, body aches, congestion, and intermittent dry cough. She is eating and drinking normally and she is using the bathroom her normal. She is taking ibuprofen to help w/ sx's and benadryl and these have helped a little with her sx's.she has not tried anything else. nothing makes her sx's worse.she denies SOB, resp distress, hx of chronic lung dz, N/V/D, numbness/tingling , cp.she has no other assoc sx's. REINA Gentile [address], [place], [address], [place] [facility] 09/12/2021 13:10:27
--- OUTSIDE RECORDS SUMMARY | 2025-06-24 15:22 | XMS_ITS | Encounter Summary ---
Author Organization [facility] Address [address] [place] [address] Care Team Providers Care Audiology Technician Name Role Phone Sofia Allen MD Primary Care Provider [phone] Encounter Details Date Type Department Care Team Description 01/05/2024 Social Work [facility] [address] [place] [address] Janet Lui MSW Social History Tobacco Use Types Packs/Day Years Used Date Smoking Tobacco: Never Smokeless Tobacco: Never Alcohol Use Standard Drinks/Week Comments Never 0 (1 standard drink = 0.6 oz pur e alcohol) Sex and Gender Information Value Date Recorded Sex Assigned at Not on file Gender Identity Not on file Sexual Orientation Not on file Job Start Date Occupation Industry Not on file Not on file Not on file documented as of this encounter Plan of Treatment Not on file documented as of this encounter Visit Diagnoses Not on filedocumented in this encounter Care Teams Audiology Technician Relationship Specialty Start Date End Date Sofia Allen MD PCP - General Internal Medicine 12/13/23 documented as of this encounter
--- OUTSIDE RECORDS SUMMARY | 2025-06-24 15:22 | XMS_ITS | Clinical Summary ---
Author Organization [facility] Address [address] [place] [address] Care Team Providers Care Managing Consultant Clinical Professor Name Role Phone Unavailable Primary Care Provider Unavailabl e Source Comments PLEASE NOTE, if this patient is a minor, it may be UNLAWFUL to discuss sensitive information that is contained in these records (such as FAMILY PLANNING, MENTAL HEALTH or SUBSTANCE ABUSE) with the minor patient's parent or other person without the patient's specific authorization.[facility] Allergies No known active allergies Medications rosuvastatin (CRESTOR) 20 mg tabletIndications: Mixed hyperlipidemia Take 1 Tab by mouth once daily 30 Tab 5 8 Active blood sugar diagnostic (FREESTYLE LITE STRIPS) stripsIndications: Type 2 diabetes mellitus with retinopathy, without long-term current use of insulin, macular edema presence unspecified, unspecified laterality, unspecified retinopathy severity USE TO TEST FINGER STICK BLOOD SUGAR DAILY 100 Each 3 8 Active blood-glucose meter (FREESTYLE LITE METER) monitoring kitIndications:Typ e 2 diabetes mellitus with retinopathy, without long-term current use of insulin, macular edema presence unspecified, unspecified laterality, unspecified retinopathy severity USE TO TEST FINGER STICK BLOOD SUGAR DAILY 1 Each 8 Active arm braceIndications:C arpal tunnel syndrome, right Pt with Dx: G56.01. Lifetime need. 1 Each 8 Active omega-3 fatty acids-fish oil 300-1,000 mg cap TOME FAWN CAPSULA WHIT VECES AL ROSALINDA 90 Cap 5 8 Active naproxen (NAPROSYN) 500 mg tabletIndications: Carpal tunnel syndrome, right Take 1 Tab by mouth 2 (two) times daily with a meal 60 Tab 1 8 Active omega-3 fatty acids 1,000 mg capsule TOME FAWN C?PSULA WHIT VECES AL D?A 5 8 Active ARIPiprazole (ABILIFY) 5 mg tabletIndications: Bipolar disorder, in partial remission, most recent episode mixed Take 1 Tab by mouth once daily 30 Tab 8 Active prazosin (MINIPRESS) 1 mg capsuleIndications :Bipolar disorder, in partial remission, most recent episode mixed Take 1-2 caps by mouth at bedtime as needed nightmares 60 Cap 1 8 Active FLUoxetine (PROZAC) 10 mg capsuleIndications :Bipolar disorder, in partial remission, most recent episode mixed Take 1 Cap by mouth once daily 30 Cap 1 8 Active lamoTRIgine (LAMICTAL) 25 mg tabletIndications: Bipolar disorder, in partial remission, most recent episode mixed Take 2 Tabs by mouth once daily 60 Tab 1 8 Active aspirin [address] tabletIndications: Essential hypertension Take 1 Tab by mouth once daily 30 Tab 2 8 Active cholecalciferol, vitamin D3, 2,000 unit tabletIndications: Vitamin D deficiency TOME FAWN TABLETA TODOS LOS BAIRES 30 Tab 3 8 Active zolpidem (AMBIEN) 5 mg tablet Take 5 mg by mouth nightly at bedtime 0 9 Active diazePAM (VALIUM) 5 mg tablet Take 5 mg by mouth once daily 0 9 Active Active Problems Problem Noted Date Diagnosed Date Insomnia 01/25/2018 Loose body in elbow joint, right 06/05/2017 Overview (06/05/2017): Seen at [facility] 04/21/17. Plan MRI Nummular eczema 11/12/2016 Overview (11/12/2016): Following Derm, Dr. Bourgeois Scabies 12/30/2015 Overview (12/30/2015): She went to [facility] on 12/21 stating that straight knife cutter machine prescribed Permethrin for generalized itching and she had increased itching, redness with the medication.she was d/enmanuel with PO Ivermectin Herpes simplex type 1 antibody positive 08/17/20 15 Overview (08/17/2015): Ig G+(02/25/15) Vitamin D deficiency 07/26/2015 Essential hypertension 07/22/2015 Hyperlipidemia 07/22/2015 Diabetes mellitus type 2 with retinopathy 2014 Overview (08/17/2015): Only on PO meds per pt, Dx in 2013, A1c=6.4(04/2014)-->5.8(02/2015)--> 5.7(07/2015) GERD (gastroesophageal reflux disease) 5 DENISE on CPAP 07/22/2015 Overview (04/05/2017): [facility] Xray 03/15/17- No apparent acute abnormality. Arthritis 07/22/2015 Carpal tunnel syndrome, right 07/22/2015 Overview (08/17/2015): S/p surgery @ [facility]. Used gabapentin before surgery Overweight (BMI 25.0-29.9) 07/22/2015 Menorrhagia with irregular cycle 07/22/2015 Overview (07/22/2015): chronic condition following with Office Machine Installer at [facility] Bipolar disorder 07/22/2015 Overview (12/16/2015): Following at [facility] Therapist- Monica Villaseñor( [phone]. Correspondence received. In 12/2015: received correspondence from Carleen. Bilateral low back pain without sciatica 015 Overview (08/17/2015): Pt says that she had herniated discs, MRI at [facility]. Had PT in the past Followed with [facility] pain clinic in the past Allergic rhinitis 07/22/2015 Overview (07/22/2015): Seen by All[facility] clinic at [facility] Constipation 07/22/2015 Overview (08/25/2015): Given family h/o colon ca, she had colonoscopy in 06/2015 at [facility]. ? Cecum polyp- Bx: Sessile serrated polyp, multiple fragments. Immunizations Immunization Administration Dates Next Due Hep B, Adult/Adol (CWNZUHR-L-NOKWM/RECOMBIVAX-ADULT) 07/06/2016,09/25/2015,08/25/2015,2002 INFLUENZA, SEASONAL, INJECTABLE 07/06/2016,09/20 MMR (MMR II/Priorix) 11/23/2001 TDAP 09/20/2013 Family History Medical History Relation Name Comments Cancer Father colon ca Cancer Mother breast ca Cancer Sister pancreatic ca Relation Name Status Comments Father Alive Mother Sister Social History Tobacco Use Types Packs/Day Years Used Date Smoking Tobacco: Never Cigarettes Smokeless Tobacco: Never Tobacco Cessation:Counseling Given: Yes Alcohol Use Standard Drinks/Week Comments Yes 0 (1 standard drink = 0.6 oz pur e alcohol) weekends, Social Connections Answer Date Recorded Social Connections and Isolation 0 04/28/2019 Financial Resource Strain Answer Date R ecorded Financial Resource Strain 0 2018 Stress Answer Date Recorded Stress 0 04/28/2019 Physical Activity Answer Date Recorded Physical Activity 0 04/28/2019 Food Insecurity Answer Date Recorded Food 0 04/28/2019 Transportation Needs Answer Date Record ed Transportation 0 04/28/2019 Housing Stability Answer Date Recorded Housing 0 04/28/2019 Safety and Environment Answer Date Rey rded Safety 0 04/28/2019 Utilities Answer Date Recorded Utilities 0 04/28/2019 Employment Answer Date Recorded Employment 0 04/28/2019 Comments No Sex and Gender Information Value Date Recorded Sex Assigned at Female 11/09/2017 12:03 PM PST Legal Sex Female 11:09 AM PDT Gender Identity Female 11/09/2017 12:03 PM PST Sexual Orientation Don't know 11/09/2017 12 :03 PM PST Last Filed Vital Signs Vital Sign Reading Time Taken Comments Blood Pressure 141/91 05/22/2018 11:19 AM EDT Pulse 84 05/22/2018 11:19 AM EDT Temperature 36.8 C (98.3 F) 05/22/2018 11:19 AM EDT Respiratory Rate 18 05/22/2018 11:19 AM EDT Oxygen Saturation 97% 05/22/2018 11:19 AM EDT Inhaled Oxygen Concentration - - Weight 87.1 kg (192 lb) 03/22/2018 2:09 PM EDT Height 167.6 cm (5' 6 ) 03/22/2018 2:09 PM EDT Body Mass Index 30.99 03/22/2018 2:09 PM EDT Plan of Treatment Not on file Goals Goal Patient Goal Type Associated Problems Recent Progress Patient-Stated? Author Blood Pressure < 140/90 Blood Pressure Essential hypertension 141/91(2017 11:19 AM EDT) Sarai Arceo, PharmD Insurance [facility]
== END 2025-06-24 11:57 | disposition home or self-care (01) ==
LOC: HO.MAMMO 11:56
PROVIDERS: PCP Internal Medicine; Visit Provider Advanced Practice Midwife
DX: Z12.31 Encounter for screening mammogram for malignant neoplasm of breast (principal)
CPT/HCPCS: 77063; 77067